=== PATIENT | female | born 1955 | race Two or more races ===

== ENCOUNTER 2025-06-03 06:03 | Day surgery (SDC) | payer MEDICARE, OTHER, SELFPAY ==
[2025-05-29 14:27] VITALS: BMI 25.2
[2025-06-03] VITALS (11 sets, daily range): BP systolic 119–175; BP diastolic 53–91; BMI 25.2
[2025-06-03 06:32] LABS: Glucose - Point of Care 143 mg/dl (70-99)
[2025-06-03] MEDS: TYLENOL 1000 MG PO (06:35)
[2025-06-03] MEDS: NORMOSOL-R/PLASMALYTE-A 1000 IV (06:35)
[2025-06-03 11:42] LABS: Glucose - Point of Care 213 mg/dl (70-99)
== END 2025-06-03 12:44 | disposition home or self-care (01) ==
LOC: SDS 06:03
PROVIDERS: ATTENDING PHYSICIAN Surgery
DX: D12.8 Benign neoplasm of rectum (principal); K64.4 Residual hemorrhoidal skin tags
CPT/HCPCS: 45171; 45330; 82962; 88307; J1335

== ENCOUNTER 2025-06-29 06:41 | Emergency (ER) | payer MEDICARE, OTHER, SELFPAY ==
[2025-06-29 06:42] VITALS: BP 150/85
[2025-06-29 07:30] LABS: Urine Character Clear (Clear)
--- NOTE | 2025-06-29 08:59 | ED.GENMED ---
History of Present Illness
General
Chief Complaint: Abdominal Pain
Source: patient, records and spouse
Exam Limitations: none
Time Seen by Provider: 06/29/25 08:38
Nursing documentation reviewed up to this point in time: agreed with
History of Present Illness
History of Present Illness:
69-year-old female with history as noted presents to the ER for evaluation of rectal pressure and diarrhea. Patient had rectal polyp resection with Dr. Hoover under anesthesia 06/03/2025. She says that since the surgery she has had consistent rectal
pressure/pain. She says that initially it was quite severe but it has generally improved although not completely resolved; she has been managing with Tylenol and ibuprofen. More concerning lately she says that she has had worsening severe diarrhea
since the procedure. At first was having some loose stools which she managed with diet and Imodium but over the past week or so she says she has had profuse watery diarrhea�she says that is severe to the point that she goes to the bathroom every 10
or 20 minutes and cannot get any sleep. She says that she discussed with her colorectal surgeon who sent her for stool studies and empirically prescribed oral vancomycin yesterday. She took 3 doses of vancomycin yesterday. This morning woke up
and symptoms still present which prompted her to finally come to the ER. She denies any rectal bleeding. She denies any abdominal pain. She has had some nausea but no vomiting. She reports decreased appetite. No fever or chills. Denies any
other acute complaints.
Review of Systems
Review of Systems
All Other Systems: ROS reviewed and negative except as documented in HPI and ROS
Constitutional: Denies fever or chills
Respiratory: Denies trouble breathing
Cardiac: Denies chest pain
ABD/GI: Reports nausea, diarrhea, anorexia and other (Rectal pressure); Denies abdominal pain, vomiting or bloody stools
: Denies flank pain
Musculoskeletal: Denies neck pain or back pain
Neurological: Denies dizzy or headache
Phy Exam
Physical Exam
Physical Exam:
General: Awake, alert, oriented x3; somewhat anxious but nontoxic
Head: Normocephalic, atraumatic
Eyes: Conjunctiva normal
Throat: Airway intact, handling secretions
Neck: Trachea midline, supple without meningismus
Lungs: Breathing comfortably with no distress
Heart: Regular rate
Abd: Soft, non distended, nontender to deep palpation
Neuro: Grossly intact, ambulatory
Extremities: Warm and well-perfused with no notable edema
Scores
Heart Failure Risk
Heart Failure Risk Score: Not Applicable
Heart Score for Chest Pain Patients
STEMI patient?: Not applicable
Withdrawal Assessment of Alcohol
Withdrawal Assessment Completed?: Not applicable
Course
Orders/Labs/Results
Orders:
Orders
06/29/25 07:07
Urinalysis Reflex To Culture Urgent
Date Specimen was Collected: 06/29/25
Time Specimen was Collected: 06:47
Urine Microscopic Reflex Cult Urgent
Urine Culture Urgent
[facility] Source: U
Specimen Description:
Date Specimen was Collected: 06/29/25
Time Specimen was Collected: 06:47
06/29/25 07:27
STOOL [C difficile Antigen & Toxins] Urgent
[facility] Source: Feces/Stool
Specimen Description:
Date Specimen was Collected: 06/29/25
Time Specimen was Collected: 06:47
06/29/25 08:56
0.9% Sodium Chloride 1000 ml [Nss] 1,000 ml IV BOLUS
06/29/25 08:58
ColoRectal Surgery Consult Urgent
Consulting Provider: Ghulam Pickett
Was physician already notified: Yes
06/29/25 09:23
CT Pelvis With Iv Contrast Routine
Comment: AND RECTAL CONTRAST
Reason For Exam: pelvic pain + diarrhea s/p transanal polyp rsxn
06/29/25 09:55
Complete Blood Count/With Diff Urgent
Comprehensive Metabolic Panel Urgent
Lipase Urgent
06/29/25 09:56
Stool Culture Urgent
[facility] Source: Feces/Stool
Specimen Description:
Date Specimen was Collected: 06/29/25
Time Specimen was Collected: 09:55
06/29/25 11:38
Midazolam HCl [Versed] 1 mg IV NOW STA
06/29/25 13:31
Midazolam HCl [Versed] 1 mg IV NOW STA
Abnormal Lab Results
06/29/25 06/29/25
07:07 09:55
Hct 36.3 L %
(37.0-47.0)
Absolute Monos (auto) 0.7 H 10^3/uL
(0.1-0.6)
Neutrophils % 40.3 L %
(42.2-75.2)
Monocytes % 10.9 H %
(1.7-9.3)
Glucose 160 H mg/dl
(70-99)
Lipase 347 H U/L
(23-300)
Ur Occult Blood Reflex 3+ A
(Negative)
Leukocyte Esterase Rfl 1+ A
(Negative)
Urine Bacteria (Reflex) Few A
(Negative)
Urine Albumin (Reflex) 2+ A
(Neg - Trace)
06/29/25 09:55
06/29/25 09:55
Vital Signs
Initial and Last Documented VS:
Initial Vital Signs
Temp Pulse Resp BP Pulse Ox
36.9 C 81 16 150/85 98
06/29/25 06:42 06/29/25 06:42 06/29/25 06:42 06/29/25 06:42 06/29/25 06:42
Last Documented Vital Signs
Temp Pulse Resp BP Pulse Ox
36.9 C 81 16 107/68 97
06/29/25 06:42 06/29/25 06:42 06/29/25 06:42 06/29/25 14:00 06/29/25 14:00
MDM/Problems Addressed
Differential Diagnosis Includes:
Colitis, proctitis, enteritis
MDM/Problems Addressed:
69-year-old female presents for evaluation of constant but improving rectal pressure and worsening diarrhea since rectal polyp resection under anesthesia 06/[address] Hoover. Hypertensive but otherwise normal vitals. Physical exam as above. She
had urinalysis in triage that is pending. She had stool studies that were collected in triage and sent off for C. difficile testing�C. difficile antigen positive but toxin negative suggesting colonization but not infection. Will send off basic
labs including a CBC and a CMP. Provide some IV fluids. Discussed with colorectal surgery for consultation. She has no abdominal pain or tenderness, hold off on imaging for now pending colorectal surgery recommendations.
Patient seen by colorectal surgery, plan for CT pelvis with IV and rectal contrast. I did review her labs, CBC and CMP unremarkable. Continue to monitor.
CT shows postprocedural changes in the rectum with some small amount of perirectal inflammatory stranding but no extravasation of rectal contrast. No abscess. Discussed with colorectal surgery�offered admission versus discharge with close
follow-up, patient prefers discharge. Plan for discharge they will see patient in the office tomorrow. All questions answered.
*Radiology
Radiology exam reviewed: radiology read reviewed
*Pulse Oximetry
SaO2: 98
Oxygen Mode of Delivery: Room air
Patient hypoxic: no (98%)
*Critical Care Note
Total Time (30-74mins, 75-104mins- exclusive of procedures): Not Applicable
Data Reviewed
Review of Other/Old Records Reveals: Records and Operative Reports
Source: patient, records and spouse
Further Testing Considered But Not Given:
Considered CT abdomen pelvis
Patient Management
Discussion with other providers: [employer] (Discussed with colorectal surgery)
Escalation/DeEscalation of care consider admission/obs:
Offered admission versus discharge with close follow-up�shared decision making plan for discharge
ED Attending Note
-
Portions of this chart may have been created with voice recognition software.� Occasional wrong word or��sound alike� substitutions may have occurred due to the inherent limitations of voice recognition software.
Discharge Plan
Departure
Patient Disposition: Home (Routine Discharge)
Date of Disposition: 06/29/25
Time of Disposition: 14:32
Patient with high blood pressure during this ER visit?: Yes
Discharge Problem:
Diarrhea
Instructions: Diarrhea in teens and adults
Prescriptions:
No Action
atorvastatin 10 mg Tablet
10 mg PO MOWEFR
alprazolam [Xanax] 0.25 mg Tablet
0.25 mg PO BID PRN (Reason: anxiety)
repaglinide 0.5 mg Tablet
0.5 mg PO BID
aspirin 81 mg Tablet
81 mg PO DAILY
losartan 100 mg Tablet
100 mg PO HS
omeprazole magnesium [Prilosec OTC] 20 mg Tablet,Delayed Release (Dr/Ec)
20 mg PO DAILY
nebivolol 10 mg Tablet
10 mg PO DAILY
acetaminophen [Tylenol] 325 mg Tablet
650 mg PO Q4H PRN (Reason: pain)
Suflave
1 dose PO DIRECTED
Patient Comments:
day before procedure
oxycodone 5 mg tablet
5 mg PO Q6H PRN (Reason: Pain) Qty: 20 0RF
Referrals:
Colin Hoover MD [Active, ColoRectal] - Tomorrow
Liban Field MD [Family Provider, Internal Medicine]
Activity Restrictions/Additional Instructions:
Thank you for visiting the Emergency Department at [facility].
1. Please schedule a follow up appointment as directed. Call first thing tomorrow morning to make an appointment.
2. If indicated, please take your medications as instructed and indicated on discharge paperwork.
3. If any of your symptoms do not improve, or persist, or become more severe within 6-12 hours, please return to the emergency department for further care.
4. Please return to the emergency department if you develop a headache, neck pain/stiffness, fever greater than 100.4F, chest pain, shortness of breath, persistent nausea, vomiting, slurred speech, difficulty walking, numbness/tingling, weakness,
signs of infection or any other symptoms that are worrisome to you.
Please call [phone] if you have any questions.
Interventions
Interventions:
*Risk Screen - Suicide Last Done: 06/29/25 06:42
*General Assessment Last Done: 06/29/25 06:42
*Neglect/Abuse Screening Last Done: 06/29/25 06:42
*ED- Fall Risk Assessment Last Done: 06/29/25 09:03
*ED COVID-19 Vaccine History Last Done: 06/29/25 09:03
FW-Jwgffs-Ichdzqvfmj Assessment Last Done: 06/29/25 09:03
Discharge Date and Time
Print Language: ERITREAN
[2025-06-29 09:03] VITALS: BMI 25.7
[2025-06-29] MEDS: NSS 1000 IV (09:11)
[2025-06-29 09:26] LABS: Urine Red Blood Cell 0-2 /HPF (0-2); Urine Squamous Cell 16-20 /LPF (Few)
--- NOTE | 2025-06-29 10:06 | CON.CRS ---
Consultation
-
Date/Time Consultation Requested: 06/29/2025, 08:58
Date/Time Consultation Performed: 06/29/2025, 9:30
Requesting Provider: Jose Katz MD
Performing Provider: Liban Hammond MD
Reason for Consultation: pelvic pain
Medical History
-
Chief Complaint: pelvic pain
History of Present Illness:
69-year-old female presents to [facility] emergency department complaining of loose stools, pelvic pain, and nausea. The patient underwent a transanal excision of a rectal polyp by Dr. Hoover on 06/03/2025. She was discharged home that day.
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 Since surgery, the patient started to develop chills and night sweats. She was placed on Augmentin and advised to take warm sitz bath per Dr. Hoover. She took 3 of the Augmentin
and stopped taking it because it did not agree with her stomach and she overall felt better. She saw him in clinic in follow-up on 06/18/2025 and reported feeling much better. She did call the office on 06/26/2025 and complained of increasing anal
pain. She also notes she has diarrhea and mucus once or twice. She called the service again yesterday and spoke to Dr. Hammond. She explained that her diarrhea got worse over the last day with decreased appetite. He had ordered a C. difficile
stool sample as well as stool cultures. She was prescribed vancomycin and started taking that yesterday. Overnight that the patient continued to feel unwell. Her diarrhea had slowed down since taking the vancomycin but her appetite has been
decreased significantly and she is unable to drink much. She states the rectal pressure feeling is a bit better since starting ibuprofen. She is nauseous all the time denies vomiting. Denies any abdominal pain. Given her symptoms, she came to
the ER. Her C. difficile cultures for antigen positive but toxin negative. Her stool cultures are currently pending. Lab work shows a WBC of 6.8. In the ER she is currently afebrile and her vitals are normal. Given all of the above, we have
been consulted for surgical opinion.
Past Medical History
Past Medical History: Other (Hypertension, diabetes, anxiety )
Past Surgical History: Other (cholecystectomy, transanal polyp removal May 2025)
Social History
Tobacco: Non-Smoker
Family History
Family History: Reviewed & Not Pertinent
Allergies / Home Medications
Allergy/AdvReac Type Severity Reaction Status Date / Time
diltiazem (From Cardizem) Allergy Rash Verified 06/03/25 06:17
metformin Allergy stomach Verified 06/03/25 06:17
pain,
weakness
�Medication �Instructions �Recorded �Confirmed �Type
Suflave 1 dose PO DIRECTED 05/29/25 06/03/25 History
acetaminophen 325 mg tablet 650 mg PO Q4H PRN pain 05/29/25 06/03/25 History
(Tylenol)
alprazolam 0.25 mg tablet (Xanax) 0.25 mg PO BID PRN anxiety 05/29/25 06/03/25 History
aspirin 81 mg tablet 81 mg PO DAILY 05/29/25 06/03/25 History
atorvastatin 10 mg tablet 10 mg PO MOWEFR 05/29/25 06/03/25 History
losartan 100 mg tablet 100 mg PO HS 05/29/25 06/03/25 History
nebivolol 10 mg tablet 10 mg PO DAILY 05/29/25 06/03/25 History
omeprazole magnesium 20 mg 20 mg PO DAILY 05/29/25 06/03/25 History
tablet,delayed release (Prilosec
OTC)
repaglinide 0.5 mg tablet 0.5 mg PO BID 05/29/25 06/03/25 History
oxycodone 5 mg tablet 5 mg PO Q6H PRN Pain #20 tabs 06/03/25 Rx
Review of Systems
-
History Source: Patient
Constitutional: Night Sweats and Chills
Abdomen/GI: Nausea, Diarrhea and Pain (pelvic nausea and night sweats chills pain and diarrhea)
A 10 point review of systems was completed, and was negative except as per HPI.
Physical Exam
Vital Signs
Temp 98.5 F 06/29/25 06:42
Pulse 81 06/29/25 06:42
Resp Rate 16 06/29/25 06:42
Blood pressure 150/85 06/29/25 06:42
SaO2 98 06/29/25 09:04
06/28/25 06/29/25 06/30/25
06:59 06:59 06:59
Actual Weight 63.7 kg
Body Mass Index (BMI) 25.7
Lab Results / Allergies
Allergy/AdvReac Type Severity Reaction Status Date / Time
diltiazem (From Cardizem) Allergy Rash Verified 06/03/25 06:17
metformin Allergy stomach Verified 06/03/25 06:17
pain,
weakness
Physical Exam
General: Well Developed, Well Nourished and No Apparent Distress
GI: Soft, Non Tender and Non Distended
Neuro: AO x 3
Psych: Calm
Data Reviewed
-
Labs: Labs Reviewed by me
Old Records: Reviewed
Assessment / Plan
-
Assessment: 69-year-old female with a recent transanal excision of a rectal polyp presents to the ER complaining of pelvic pain, chills, nausea, and loose stools. Started on vancomycin yesterday for possible C. difficile.
Plan:
- CT pelvis with IV and rectal contrast
- Continue n.p.o.
- Trend labs and vital signs, continue vancomycin
- Plans to follow after CT
[2025-06-29 10:13] LABS: Hematocrit 36.3 % (37.0-47.0); Hemoglobin 12.2 g/dL (12.0-16.0); Mean Corp Hgb Conc. 33.6 g/dL (33.0-37.0); Mean Corpuscular Volume 84.4 fL (81.0-99.0); Nucleated Red Blood Cells % 0 %; Platelet Count 258 10^3/uL (130-400); Red Cell Dist. Width 14.2 % (11.5-14.5)
[2025-06-29 10:36] LABS: ALT (SGPT) 15 U/L (0-35); AST (SGOT) 24 U/L (14-36); Albumin 4.5 g/dl (3.5-5.0); Alkaline Phosphatase 85 U/L (38-126); Blood Urea Nitrogen 15 mg/dl (7-17); Calcium 9.5 mg/dl (8.4-10.2); Carbon Dioxide 24 mmol/L (22-30); Chloride 106 mmol/L (98-107); Estimated Creatinine Clearance 61 ml/min; Glucose 160 mg/dl (70-99); Lipase 347 U/L (23-300); Potassium 3.9 mmol/L (3.5-5.1); Sodium 139 mmol/L (135-145); Total Protein 7.5 g/dl (6.3-8.2); eGFR > 60.00
[2025-06-29] MEDS: VERSED 1 MG IV ×2 (12:02→13:53)
[2025-06-29 12:18] VITALS: BP 120/98
[2025-06-29 13:00] VITALS: BP 116/81
[2025-06-29 14:00] VITALS: BP 107/68
== END 2025-06-29 14:48 | disposition home or self-care (01) ==
LOC: EMR 06:41
PROVIDERS: Emergency Medicine; CONSULT PHYSICIAN Surgery; EMERGENCY PHYSICIAN Emergency Medicine; FAMILY PHYSICIAN Internal Medicine
DX: R19.7 Diarrhea, unspecified (principal); E11.9 Type 2 diabetes mellitus without complications; I10 Essential (primary) hypertension; Z86.0100 Personal history of colon polyps, unspecified; Z90.49 Acquired absence of other specified parts of digestive tract
CPT/HCPCS: 99284; 96374; 96375; 96361; 72193; 80053; 81003; 81015; 83690; 85025; 87045; 87046; 87086; 87324; 87427; 87449; Q9967